=== PATIENT | male | born 1955 | race Caucasian/White ===

== ENCOUNTER 2017-07-21 02:58 | Emergency (ER) | payer MEDICAID, OTHER ==
[~2017-07-21] VITALS: Ht 177.8 cm; Wt 78.0 kg
[2017-07-21 02:59] VITALS: BP 157/105
[2017-07-21] MEDS ORDERED: ALBUTEROL MDI (03:23)
[2017-07-21 04:36] LABS: MICROSCOPIC INDICATED
[2017-07-21 04:37] LABS: CULTURE INDICATED? NO
== END 2017-07-21 05:12 | disposition home or self-care (01) ==
LOC: ED 03:49
DX: K40.91 Unilateral inguinal hernia, without obstruction or gangrene, recurrent (principal); J44.9 Chronic obstructive pulmonary disease, unspecified; F17.210 Nicotine dependence, cigarettes, uncomplicated
CPT/HCPCS: 81001; 99283